=== PATIENT | male | born 1995 ===

== ENCOUNTER 2018-07-04 17:36 | Emergency (ER) | payer MEDICAID ==
[2018-07-04 17:49] VITALS: BP 167/82; PULSE 82; RESP 20; TEMP 98.2; O2SAT 99
--- NOTE | 2018-07-04 18:47 | C.PDOC ---
History Of Present Illness 22 y/o male with longstanding history of wax build up presents to the ED for left-sided earache. Over the last week, patient has noted decreased hearing in the left ear, states it feels like its under water. Mom brought him Debrox drops, which she has been applying to his left ear without any improvement. Otherwise he denies any fever, chills, cough, or URI symptoms. Time Seen by Provider: 07/04/18 18:20 Chief Complaint (Nursing): ENT Problem History Per: Patient History/Exam Limitations: None Onset/Duration Of Symptoms: Days Current Symptoms Are (Timing): Still Present Past Medical History Reviewed: Historical Data, Nursing Documentation, Vital Signs Vital Signs: Last Vital Signs Temp 98.2 F 07/04/18 17:46 Pulse 82 07/04/18 17:46 Resp 20 07/04/18 17:46 BP 167/82 H 07/04/18 17:46 Pulse Ox 99 07/04/18 17:46 - Medical History PMH: No Chronic Diseases Surgical History: No Surg Hx Family History: States: Unknown Family Hx - Social History Hx Tobacco Use: No Hx Alcohol Use: No Hx Substance Use: No - Immunization History Hx Tetanus Toxoid Vaccination: No Hx Influenza Vaccination: No Hx Pneumococcal Vaccination: No Review Of Systems Constitutional: Negative for: Fever, Chills, Weakness Eyes: Negative for: Redness ENT: Positive for: Ear Pain (Left), Other (Left decreased hearing). Negative for: Mouth Swelling Cardiovascular: Negative for: Chest Pain Respiratory: Negative for: Cough, Shortness of Breath Gastrointestinal: Negative for: Nausea, Vomiting, Diarrhea Genitourinary: Negative for: Dysuria, Hematuria Musculoskeletal: Negative for: Back Pain Skin: Negative for: Rash Neurological: Negative for: Weakness, Numbness Physical Exam - Physical Exam Appears: Well, Non-toxic, No Acute Distress Skin: Normal Color, Warm, No Rash Head: Atraumatic, Normacephalic Eye(s): bilateral: Normal Inspection (no scleral icterus), PERRL, EOMI Ear(s): Bilateral: TM Obscured By Wax Oral Mucosa: Moist Throat: Normal, No Erythema, No Exudate Neck: Normal ROM, Supple Respiratory: No Accessory Muscle Use, Other (No respiratory distress) Extremity: Bilateral: Atraumatic, Normal ROM Pulses: Left Radial: Normal, Right Radial: Normal Neurological/Psych: Oriented x3, Normal Cranial Nerves ED Course And Treatment O2 Sat by Pulse Oximetry: 99 (RA) Pulse Ox Interpretation: Normal Medical Decision Making Medical Decision Making: Impression: Cerumen Impaction, Bilateral Procedure: Cerumen removed bilaterally Left: large amounts of cerumen removed, TM appears non-erythematous and non- bulging Right: some cerumen removed, not able to visualize TM. Debrox drops applied in the ED. Patient remains afebrile, tolerating PO, and is stable for discharge home. Advised to follow up with ENT for further management, referral provided. 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 - Scribe Statement The provider has reviewed the documentation as recorded by the Scribpeace [place] All medical record entries made by the Scribe were at my direction and personally dictated by me. I have reviewed the chart and agree that the record accurately reflects my personal performance of the history, physical exam, medical decision making, and the department course for this patient. I have also personally directed, reviewed, and agree with the discharge instructions and disposition.
== END 2018-07-04 19:11 | disposition home or self-care (01) ==
LOC: C.ER 17:36
DX: H61.23 Impacted cerumen, bilateral (principal)

== ENCOUNTER 2018-08-16 11:30 | Emergency (ER) | payer MEDICAID, OTHER ==
[2018-08-16 11:36] VITALS: BP 133/89; PULSE 126; RESP 18; TEMP 100.3; O2SAT 98
--- NOTE | 2018-08-16 11:51 | C.PDOC ---
History Of Present Illness FEVER CHILLS SORE THROAT RUNNY NOSE X 3 DAYS. TM 101. NO ASTHMA, NV EXAM NONTOXIC HEENT +MILD PHARYNGITIS, NO RHINORRHEA NECK SUPPLE LUNGS CTA B/L NO W/R/R HPI: Influenza Time Seen by Provider: 08/16/18 11:42 Chief Complaint: Flu-like Symptoms History Per: Patient Exam Limitations: no limitations Onset/Duration Of Symptoms: Days Symptoms include: fever, sore throat Risk factors for flu complications: No: adult > 65 years, chronic lung disease Past Medical History Reviewed: Historical Data, Nursing Documentation, Vital Signs Vital Signs: Last Vital Signs Temp 100.3 F H 08/16/18 11:32 Pulse 126 H 08/16/18 11:32 Resp 18 08/16/18 11:32 BP 133/89 08/16/18 11:32 Pulse Ox 98 08/16/18 11:32 - Medical History PMH: No Chronic Diseases Surgical History: No Surg Hx Family History: States: No Known Family Hx - Social History Hx Tobacco Use: No Hx Alcohol Use: No Hx Substance Use: No - Immunization History Hx Tetanus Toxoid Vaccination: No Hx Influenza Vaccination: No Hx Pneumococcal Vaccination: No Review Of Systems Except As Marked, All Systems Reviewed And Found Negative. Constitutional: Positive for: Fever, Chills ENT: Positive for: Nose Discharge (runny nose), Throat Pain Gastrointestinal: Negative for: Nausea, Vomiting Physical Exam - Physical Exam Appears: Non-toxic Skin: Normal Color, Warm, Dry Head: Atraumatic, Normacephalic Eye(s): bilateral: Normal Inspection Nose: Other (no rhinorrhea) Throat: Other (mild pharyngitis) Neck: Supple Cardiovascular: Rhythm Regular Respiratory: Normal Breath Sounds, No Rales, No Rhonchi, No Wheezing Neurological/Psych: Oriented x3, Normal Speech Medical Decision Making Medical Decision Making: Plan: --Tylenol PO - ECG O2 Sat by Pulse Oximetry: 98 Disposition Counseled Patient/Family Regarding: Diagnosis, Need For Followup, Rx Given - Disposition Referrals: [facility] [Outside] [facility] [Outside] Disposition: HOME/ ROUTINE Disposition Time: 11:51 Condition: IMPROVED Prescriptions: Oseltamivir Cap [Tamiflu] 75 mg PO BID #10 cap Instructions: Flu, Adult (DC) Forms: [employer] (Israeli), Work Excuse - Clinical Impression Clinical Impression: Influenza-like illness, Viral syndrome - Scribe Statement The provider has reviewed the documentation as recorded by the Alejandroibe Meaghan Smalls Provider Attestation: All medical record entries made by the Alejandroibe were at my direction and personally dictated by me. I have reviewed the chart and agree that the record accurately reflects my personal performance of the history, physical exam, medical decision making, and the department course for this patient. I have also personally directed, reviewed, and agree with the discharge instructions and disposition.
== END 2018-08-16 12:13 | disposition home or self-care (01) ==
LOC: C.ER 11:30
DX: J11.1 Influenza due to unidentified influenza virus with other respiratory manifestations (principal)